=== PATIENT | male | born 1975 | race Caucasian/White ===

== ENCOUNTER 2019-09-18 11:49 | Outpatient (CLI) | payer OTHER ==
[2019-09-18] MEDS ORDERED: BUFFERED LIDOCAINE 10 ML SYRINGE ONE (12:00)
[2019-09-18] MEDS ORDERED: GADOBUTROL 10 MMOL/10 ML VIAL ONE (12:00)
[2019-09-18] MEDS ORDERED: IOTHALAMATE MEGLUMINE 50 ML VIAL ONE (12:00)
[2019-09-18] MEDS ORDERED: IOTHALAMATE MEGLUMINE 50 ML VIAL IVP ONE (13:40)
[2019-09-18] MEDS ORDERED: GADOBUTROL 10 MMOL/10 ML VIAL IVP ONE (13:40)
[2019-09-18] MEDS ORDERED: BUFFERED LIDOCAINE 10 ML SYRINGE IU ONE (13:40)
--- NOTE | 2019-09-18 15:59 | XRAY Report ---
Reason: PAIN IN RT SHOULDER Procedure Date: 09/18/2019 Accession Number: [id number] / [id number] Procedure: FL - Arthrogram Needle Placement CPT Code: Final Report FULL RESULT: EXAM: RIGHT SHOULDER ARTHROGRAPHIC INJECTION WITH FLUOROSCOPIC GUIDANCE EXAM DATE: 09/18/2019 12:53 PM. CLINICAL HISTORY: PAIN IN RT SHOULDER. COMPARISON: None. TECHNIQUE: The risks, benefits, and alternatives of the procedure were discussed with the patient. All questions were answered. Written and verbal consent were obtained. The right glenohumeral joint was marked under fluoroscopy and prepped and draped in a sterile manner. Local anesthesia was performed with 1% lidocaine. A 22-gauge needle was then inserted into the glenohumeral joint. 10 mL of a solution containing 25% 1% lidocaine, 25% iodinated contrast, and a 1:200 dilution of gadolinium contrast in sterile saline was then injected. The needle was removed without immediate complication. Other: None. Fluoroscopy Time: 25 seconds. Number of Images: 3. FINDINGS: Bones and joints: No fracture or subluxation. Injection: Fluoroscopic images demonstrate needle placement and contrast in the glenohumeral joint. No contrast extravasation outside of the glenohumeral joint. IMPRESSION: Successful fluoroscopically guided arthrographic injection of the right shoulder. RADIA
--- NOTE | 2019-09-19 10:38 | MRI Report ---
Reason: PAIN IN RT SHOULDER Procedure Date: 09/18/2019 Accession Number: [id number] / [id number] Procedure: MRI - Arthrogram Shoulder RT CPT Code: Final Report FULL RESULT: EXAM: RIGHT SHOULDER MRI ARTHROGRAM WITH CONTRAST EXAM DATE: 09/18/2019 01:50 PM. CLINICAL HISTORY: Pain in right shoulder. COMPARISON: None. TECHNIQUE: Multiplanar, multisequence T1-weighted and fluid-sensitive sequences of the shoulder after an arthrographic injection of dilute gadolinium, dictated under a separate exam. Other: None. FINDINGS: Rotator cuff: High grade distal articular surface and insertional tear of the supraspinatus measures 3 cm medial to lateral and 2.6 cm anteroposterior. Tear involves some upper fibers of the infraspinatus. The tear involves greater than 50% of the thickness of the distal tendon and insertion. No full-thickness tear identified. No significant rotator cuff muscle atrophy or fatty replacement. Long head biceps tendon: Intact demonstrating normal course, signal and morphology. Labrum: Tiny partial-thickness contrast filling tear at the base of the posterior superior labrum. Tiny tear at the junction of the inferior labrum and inferior glenoid articular cartilage with trace amount of contrast extending into a small anteroinferior subcortical cyst. Bones and articular surfaces: Linear cartilage fissure near the junction of the inferior labrum and lower portion of the glenoid with small anteroinferior subchondral cyst formation. No significant articular cartilage defects. Subcortical cyst formation and subchondral marrow edema at the anterior margin of the greater tuberosity. Acromioclavicular joint: Mild degenerative change. Type II acromion. IMPRESSION: 1. High-grade partial-thickness articular surface and insertional tear of the supraspinatus and upper infraspinatus measuring 2.6 x 3.0 cm. 2. Small tears at the posterior superior and inferior labrum. RADIA
== END 2019-09-18 11:50 | disposition home or self-care (01) ==
LOC: DI 11:49
PROVIDERS: ATTEND Student in an Organized Health Care Education/Training Program
DX: M75.101 Unspecified rotator cuff tear or rupture of right shoulder, not specified as traumatic (principal); S43.491A Other sprain of right shoulder joint, initial encounter
CPT/HCPCS: 23350; 73222; 77002; A9585; Q9961

== ENCOUNTER 2019-10-29 09:34 | Outpatient (CLI) | payer OTHER ==
[2019-10-29 10:54] VITALS: BP 119/68
--- NOTE | 2019-10-29 10:54 | SLEEP CARE CONSULTATION ---
Information from patient questionnaire entered by Melissa Riddle. I have reviewed and concur with the information entered by Melissa Riddle. This document represents the service I personally performed and the decisions made by me, Landon Nance MD, [facility]. History of Present Illness Reason for Visit: New patient Chief Complaint: reports: Insomnia, Unrefreshed sleep, Snoring, Excessive daytime sleepiness, Observed pauses in breathing, Fatigue, Frequent awakenings at night Duration of Symptoms: 2 years Usual bedtime: 9834-0244 Time it takes to fall asleep: 15 minutes Snores at night: Yes Observed to quit breathing while asleep: Yes Sleeps alone due to snoring: No (not yet) Number of times waking at night: 4-10 Reasons for waking at night: reports: Snoring, Pain, Bathroom Toss, Turn, or Twitch while sleeping: Yes Recalls having dreams: No Usually gets out of bed at: 0600 Feels refreshed in the morning: No Morning headache: Yes (sometimes) Sleepy or fatigued during the day: Yes Ever fallen asleep while driving: No Takes day naps: No Dreams during day naps: No Prior sleep studies: No Additional HPI information: I had the pleasure of seeing Mr. Cotto today regarding the possibility of him having a sleep disorder. As you know, he is a 43 year old gentleman who complains of loud snore, observed apneas, unrefreshed sleep, persistent fatigue, and excessive daytime sleepiness for the past 2 years. The patient tells me that he normally goes to bed around 9 - 10 pm, and it takes him approximately 15 minutes to fall asleep. He not been told that he snores loudly and irregularly at night. He has never been observed to stop breathing in his sleep. His occasionally has to sleep in a separate room. He can recall waking up on the average of 4 - 10 times during the night. Most of the time he wakes up because of having to use the bathroom and shoulder pain. He has awakened occasionally because of his own snoring, choking, and having to gasp for air. There is a lot of tossing and turning in his sleep. No somniloquy (sleep talking) or somnambulism (sleep walking). Generally he can recall having dreams. In the morning he usually gets up out of the bed around 6 a.m. not feeling refreshed nor rested. He occasionally has a morning headache lasting about an hour. During the day he complains of feeling sleepy and fatigued. His score on [place] Sleepiness Scale is 14 out of 24. He has never fallen asleep while driving nor has had any accident due to sleepiness. He usually does not take naps during the day. Upon falling asleep during the day he denies having vivid dreams. He has never had sleep paralysis, experienced cataplexy or symptoms of restless leg syndrome. He reports having impaired concentration during the day. Subjective Initial [place] Sleepiness Scale score: 14 Past Medical History Past Medical History: reports: Other (torn right rotator cuff) Social History The patient's occupation is active . Patient is and lives in [place]. Have you smoked in the past 12 months: No Alcohol use: Yes Alcohol amount and frequency: 1/2, 3 days/week Caffeine use: Yes Caffeine amount and frequency: 1/day Family History Family history of sleep disordered breathing: Yes Family Hx Sleep Apnea: Mother: Snoring, Father: Snoring Allergies and Home Medications Known drug allergies: Yes (none) Drug allergies reviewed: Yes Home medication list reviewed: Yes (Advil and Flonase) Review of Systems Weight gain over past 5 years: 8 Weight loss over past 5 years: 8 Cardiovascular: denies: high blood pressure, palpitations, chest pain, irregular heart rate or pulse, leg or foot swelling, have to sleep sitting up, other Respiratory: denies: shortness of breath, wheeze, sputum production, chronic cough, other Gastrointestinal: denies: heartburn, difficulty swallowing, nausea, vomitting, diarrhea, abdominal pain, other Urinary: denies: incontinence, frequency, urgency, impotence, other Neurological: denies: headaches, seizure, head trauma, disorientation, speech dysfunction, gait or balance problems, fainting or unconsciousness, other Psychiatric: denies: Attention Deficit Hyperactivity, anxiety, depression, mood disorder, claustrophobia, other Ear/Nose/Throat: reports: nasal congestion, sinus problems, nose bleeds Endocrine: denies: thyroid disease, history of goiter, sluggishness, too hot or cold, excessive thirst, increased appetite, increased urination, unexplained weakness, other Musculoskeletal: reports: joint pain, neck pain, back pain, joint swelling, mobility problems Immunologic: reports: sneezing, allergies to food or environment Physical Exam Vital signs obtained and entered by: Dr. Nance Blood Pressure: 119/68 Cuff size: regular Heart Rate: 63 O2 Saturation: 98 Height: 5 ft 9 in Weight: 212 lb Body Mass Index: 31.3 BMI Classification: Obesity Class 1 Neck circumference: 16 Mood/affect: Normal HEENT: No craniofacial malformation Nostrils: patent to airflow Turbinates: normal Septum: midline Mouth and throat: narrow oropharynx Soft palate: long Hard palate: normal Uvula: normal Uvula visualization: 50% Mallampati Class II Tongue: normal in size Tonsils: small Chin and jaw: normal size and position Neck: normal w/o lymphadenopathy or thyromegaly Heart: regular rate and rhythm Lungs: clear bilaterally Abdomen: soft, non-tender Extremities: no edema or clubbing Neurologic: intact, no focal deficits Impression and Plan IMPRESSION: 1. Obstructive Sleep Apnea-Hypopnea Syndrome, as suggested by history of loud and irregular snoring, observed cessation of breath while asleep, frequent awakenings during the night, unrefreshed sleep, morning headache, cognitive impairment, and daytime hypersomnolence. Narrow oropharynx and obesity are common predisposing factors for obstructive sleep apnea-hypopnea syndrome. Pathophysiology of sleep-disordered breathing was discussed. I recommend proceeding to polysomnography to confirm the diagnosis and to assess severity. If he has significant sleep disordered breathing, a manual CPAP titration study will also be performed to find the optimal treatment pressure. I informed the patient of what the sleep studies involve and after some discussion, he agreed to proceed. Plan: 1. Schedule polysomnography + manual CPAP titration study 2. Avoid long distance driving or when feeling sleepy. 3. Avoid alcohol, sedative and muscle relaxant around bedtime. 4. Attempt to lose weight. 5. Return in 1 to 2 weeks after the study to discuss results and initiate therapy. I spent 100% of this visit face to face with the patient with greater than 50% of this was spent time counseling the patient and coordination of care.
== END 2019-10-29 09:35 | disposition home or self-care (01) ==
LOC: SC 09:34
PROVIDERS: ATTEND Internal Medicine Pulmonary Disease
DX: R06.83 Snoring (principal); R06.81 Apnea, not elsewhere classified; G47.8 Other sleep disorders; R51 Headache; R41.89 Other symptoms and signs involving cognitive functions and awareness; G47.10 Hypersomnia, unspecified; E66.9 Obesity, unspecified; Z68.31 Body mass index [BMI] 31.0-31.9, adult
CPT/HCPCS: 99203; 99212

== ENCOUNTER 2019-11-12 10:40 | Emergency (ER) | payer OTHER ==
[2019-11-12 11:22] LABS: BASOPHILS % (AUTO) 0.6 %; EOSINOPHILS # (AUTO) 0.2 10^3/uL (0.0-0.7); HGB - HEMOGLOBIN 14.8 g/dL (14.0-18.0); LYMPHOCYTES # (AUTO) 2.1 10^3/uL (1.5-3.5); LYMPHOCYTES % (AUTO) 33.5 %; MEAN CORPUSCULAR HEMOGLOBIN 31.7 pg (27.0-31.0); MEAN CORPUSCULAR HGB CONC 34.5 g/dL (32.0-36.0); MEAN CORPUSCULAR VOLUME 91.9 fL (80.0-94.0); MONOCYTES # (AUTO) 0.5 10^3/uL (0.0-1.0); MONOCYTES % (AUTO) 7.8 %; NEUTROPHILS # (AUTO) 3.5 10^3/uL (1.5-6.6); NEUTROPHILS % (AUTO) 54.8 %; PLT - PLATELET COUNT 301 10^3/uL (130-450); RED BLOOD COUNT 4.67 10^6/uL (4.70-6.10); RED CELL DISTRIBUTION WIDTH 12.6 % (12.0-15.0); WHITE BLOOD COUNT 6.3 x10^3/uL (4.8-10.8)
--- NOTE | 2019-11-12 11:26 | XRAY Report ---
Reason: CHEST PAIN Procedure Date: 11/12/2019 Accession Number: [id number] / [id number] Procedure: XR - Chest 2 View X-Ray CPT Code: 98255 Final Report FULL RESULT: EXAM: CHEST RADIOGRAPHY, 2 VIEWS EXAM DATE: 11/12/2019 11:10 AM. CLINICAL HISTORY: 43-year-old male with chest pain, who has been burping a lot. COMPARISON: None. TECHNIQUE: Upright PA and lateral views. FINDINGS: Lungs/Pleura: No focal opacities evident. No pleural effusion. No pneumothorax. Normal volumes. Mediastinum: Heart size normal, without adenopathy or pulmonary vascular congestion. Other: Trachea is midline. Osseous structures are unremarkable. IMPRESSION: Normal chest for age and body size. No pneumonia, CHF or other demonstrated cause for the patient's symptoms. RADIA
[2019-11-12 11:33] LABS: ALBUMIN 4.7 g/dL (3.2-5.5); ALBUMIN/GLOBULIN RATIO 1.5 (1.0-2.2); BILIRUBIN,TOTAL 1.1 mg/dL (0.2-1.0); CALCIUM 9.5 mg/dL (8.5-10.3); TOTAL PROTEIN 7.8 g/dL (6.7-8.2)
[2019-11-12] MEDS ORDERED: IBUPROFEN 600 MG TABLET PO STA (12:11)
--- NOTE | 2019-11-12 13:08 | ED Physician Documentation ---
PD HPI CHEST PAIN - Stated complaint Stated Complaint: CHEST PX - Chief complaint Chief Complaint: Cardiac - History obtained from History obtained from: Patient - History of Present Illness Timing - onset: How many days ago (2) Timing - duration: Days (2) Quality: Other (Burning) Location: Right chest Radiation: No: Jaw, Neck, Back, Abdominal, Left upper extremity, Right upper extremity, Other Worsened by: Position Associated symptoms: No: Shortness of air, Diaphoresis, Nausea, Vomiting, Feeling faint / dizzy, Palpitations, Cough Recently seen: Not recently seen - Additional information Additional information: Is a 43-year-old man who presents with complaints that he said some burning sensation along the right side of his sternum for the past couple of days. Is been a constant but there is a waxing and waning pain apparently is about a 2 out of 10 right now. Yesterday took some Pepcid for it but it did not seem to help very much and he was at work today and he just did not feel right. Plus he talked to a friend who is at work who said that he had the same kind of pain and ended up having pulmonary embolism. This frightened the patient enough that he decided he should come in and have it looked at. Denies any radiation of the pain but says the left arm is been hurting and points to the bicep region since he did some pull-ups about a day or 2 before this pain started in his chest. He denies any associated symptoms of shortness of breath, cough, dizziness, diaphoresis, nausea. Denies history of DVT. He has had no bruising or trauma to the chest. Denies dysuria or peripheral edema. He has noted that certain positions in bed make the pain worse particular if he is laying on his side but he also attributed that to the fact that he has a rotator cuff injury and is post to have surgery on the right arm. He feels better if he is laying flat on his back. Review of Systems Constitutional: denies: Fever, Sweats Eyes: denies: Decreased vision Nose: denies: Rhinorrhea / runny nose Throat: denies: Sore throat Cardiac: reports: Chest pain / pressure. denies: Palpitations, Pedal edema Respiratory: denies: Dyspnea, Cough GI: denies: Nausea, Vomiting, Diarrhea : denies: Dysuria Skin: denies: Rash Musculoskeletal: reports: Other (Right shoulder pain due to rotator cuff injury). denies: Back pain Neurologic: denies: Near syncope Endocrine: reports: Other (He is not diabetic) PD PAST MEDICAL HISTORY - Present Medications Home Medications: Ambulatory Orders Medication Instructions Recorded Confirmed No Known Home Medications 11/12/19 11/12/19 - Allergies Allergies/Adverse Reactions: Allergies Allergy/AdvReac Type Severity Reaction Status Date / Time amoxicillin [From Augmentin] AdvReac Nausea Verified 11/12/19 10:44 clavulanic acid AdvReac Nausea Verified 11/12/19 10:44 [From Augmentin] - Social History Does the pt smoke?: No Smoking Status: Never smoker PD ED PE NORMAL - Vitals Vital signs reviewed: Yes - General General: Alert and oriented X 3, No acute distress, Well developed/nourished - HEENT HEENT: Atraumatic, PERRL, Moist mucous membranes - Neck Neck: Supple, no meningeal sign, No adenopathy - Cardiac Cardiac: RRR, No murmur, Strong equal pulses, Other (Patient has pain right with palpation at the right costochondral junction.) - Respiratory Respiratory: No respiratory distress, Clear bilaterally - Abdomen Abdomen: Normal bowel sounds - Derm Derm: Normal color, Warm and dry, No rash - Extremities Extremities: No edema - Neuro Neuro: Alert and oriented X 3, 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, No motor deficit, No sensory deficit, Normal speech - Psych Psych: Normal mood, Normal affect Results - Vitals Vitals: Vital Signs - 24 hr 11/12/19 11/12/19 11/12/19 10:41 11:59 13:00 Temperature 37.1 C 36.9 C Heart Rate 65 75 65 Respiratory 18 17 14 Rate Blood Pressure 134/88 H 128/89 H 122/76 O2 Saturation 100 99 99 Oxygen O2 Source Room air - EKG (time done) 1047 Rate: Rate (enter#) (64) Rhythm: NSR Intervals: No: Wide QRS Ischemia: Normal ST segments Compare to prior EKG: Old EKG unavailable - Labs Labs: Laboratory Tests 11/12/19 11/12/19 11/12/19 11:10 11:10 11:10 WBC 6.3 RBC 4.67 L Hgb 14.8 Hct 42.9 MCV 91.9 MCH 31.7 H MCHC 34.5 RDW 12.6 Plt Count 301 MPV 10.0 Neut # (Auto) 3.5 Lymph # (Auto) 2.1 [place] # (Auto) 0.5 Eos # (Auto) 0.2 Baso # (Auto) 0.0 Absolute Nucleated RBC 0.00 Nucleated RBC % 0.0 Sodium 139 Potassium 4.3 Chloride 103 Carbon Dioxide 28 Anion Gap 8.0 BUN 17 Creatinine 1.0 Estimated GFR (MDRD) 82 L Glucose 114 H Calcium 9.5 Total Bilirubin 1.1 H AST 26 ALT 32 Alkaline Phosphatase 34 L Troponin I High Sens < 2.3 L Total Protein 7.8 Albumin 4.7 Globulin 3.1 Albumin/Globulin Ratio 1.5 Lipase 33 PD MEDICAL DECISION MAKING - ED course Complexity details: reviewed results, re-evaluated patient, d/w patient ED course: Chest x-ray is negative. His EKG has no acute changes. Labs including a troponin were normal. Patient has reproducible pain at the costochondral junction on the right side and has a rotator cuff injury to the right shoulder that he supposed to have surgery on. He was recently doing pull-ups and I think that may have been what precipitated this pain. He was given a dose of ibuprofen here but at the time of reevaluation it had not made any dip Departure - Departure Disposition: 01 Home, Self Care Clinical Impression: Costochondritis, acute Condition: Good Instructions: ED Chest Pain Costochondritis Follow-Up: REDDY Lamb [Provider Group] Comments: Take ibuprofen up to 3 to 4 tablets every 8 hours with food as needed. You can ice this area. Avoid anything that strains your chest wall like push push-ups and pull-ups. [place] if the pain persist and is not improving. Discharge Date/Time: 11/12/19 13:11
[2019-11-12 13:11] VITALS: BP 122/76
== END 2019-11-12 13:11 | disposition home or self-care (01) ==
LOC: ED 10:40
DX: M94.0 Chondrocostal junction syndrome [Tietze] (principal); G47.33 Obstructive sleep apnea (adult) (pediatric); E66.9 Obesity, unspecified; Z68.31 Body mass index [BMI] 31.0-31.9, adult
CPT/HCPCS: 36415; 71046; 80053; 83690; 84484; 85025; 93005; 95810; 99284; A9270

== ENCOUNTER 2019-11-12 19:39 | Outpatient (CLI) | payer OTHER | END 2019-11-12 19:40 | disposition home or self-care (01) | LOC: SC 19:39 | PROVIDERS: ATTEND Internal Medicine Pulmonary Disease | DX: G47.33 Obstructive sleep apnea (adult) (pediatric) (principal); E66.9 Obesity, unspecified; Z68.31 Body mass index [BMI] 31.0-31.9, adult | CPT/HCPCS: 95810 ==

== ENCOUNTER 2019-11-13 14:00 | Outpatient (CLI) | payer OTHER ==
--- NOTE | 2019-11-13 14:30 | SLEEP CARE CONSULTATION ---
Information from patient questionnaire entered by Melissa Riddle. I have reviewed and concur with the information entered by Melissa Riddle. This document represents the service I personally performed and the decisions made by me, Landon Nance MD, [facility]. History of Present Illness Initial [place] Sleepiness Scale score: 14 Current [place] Sleepiness Scale score: 10 Additional HPI information: HPI: Mr. Cotto returned for follow up of the sleep study he had last night. The polysomnography showed that the patient had normal sleep efficiency. The sleep architecture was normal as well. Respiratory monitoring showed mild obstructive sleep apnea-hypopnea (AHI = 6.0) associated with oxyhemoglobin desaturation and minimal hypoxia (chi oxygen saturation of 89%) but not sleep fragmentation. The respiratory events occurred almost exclusively during supine sleep (supine AHI = 8.1; non-supine = 0.87). Snore was loud in intensity. There was no significant periodic leg movement of sleep. Cardiac rhythm was normal sinus rhythm without significant arrhythmia. No abnormal behavior (parasomnia) observed during the night. The patient was informed of these findings. I explained to him the pathophysiology behind obstructive sleep apnea. We then spent quite a bit of time discussing different treatment options. For mild obstructive sleep apnea, surgery and oral appliance are alternatives to nasal CPAP therapy but in moder ate or severe cases, nasal CPAP is the most effective and reliable treatment. Weight loss in an obese individual is strongly recommended. After some discussion, he opted to go with the nasal CPAP therapy. He says that he has right shoulder pain and cannot sleep on that side. He also has TMJ disorder that could interfere with the oral appliance therapy. Allergies and Home Medications Drug allergies reviewed: Yes Home medication list reviewed: Yes (Advil & Flonase) Review of Systems Review of systems same as previous: Yes Physical Exam Height: 5 ft 9 in Weight: 212 lb Body Mass Index: 31.3 BMI Classification: Obesity Class 1 Impression and Plan IMPRESSION: 1. Obstructive Sleep Apnea-Hypopnea Syndrome, mild, and positional. Possibly, this is the cause of the patients symptoms of unrefreshed sleep, and excessive daytime sleepiness. As mentioned above, the patient will be brought back for a manual CPAP/BiPAP titration study. PLAN: 1. Schedule a manual CPAP/BiPAP titration study. 2. Attempt to lose weight and avoid alcohol consumption near bedtime. 3. Return for follow up after the sleep study. I spent 100% of this visit face to face with the patient with greater than 50% of this was spent time counseling the patient and coordination of care.
== END 2019-11-13 14:01 | disposition home or self-care (01) ==
LOC: SC 14:00
PROVIDERS: ATTEND Internal Medicine Pulmonary Disease
DX: G47.33 Obstructive sleep apnea (adult) (pediatric) (principal); E66.9 Obesity, unspecified; Z68.31 Body mass index [BMI] 31.0-31.9, adult
CPT/HCPCS: 99212; 99213

== ENCOUNTER 2019-11-27 20:36 | Outpatient (CLI) | payer OTHER | END 2019-11-27 20:37 | disposition home or self-care (01) | LOC: SC 20:36 | PROVIDERS: ATTEND Internal Medicine Pulmonary Disease | DX: G47.33 Obstructive sleep apnea (adult) (pediatric) (principal) | CPT/HCPCS: 95811 ==

== ENCOUNTER 2019-12-04 10:22 | Outpatient (CLI) | payer OTHER ==
--- NOTE | 2019-12-04 12:30 | SLEEP CARE CONSULTATION ---
Information from patient questionnaire entered by Melissa Riddle. I have reviewed and concur with the information entered by Melissa Riddle. This document represents the service I personally performed and the decisions made by me, Edyta Bell, RN, MSN, [facility]. History of Present Illness Initial [place] Sleepiness Scale score: 14 Current [place] Sleepiness Scale score: 16 Additional HPI information: JILL FABIAN returns for follow up and results of the recently performed manual titration polysomnography. I explained the pathophysiology behind obstructive sleep apnea and reviewed his polysomnagraphy results as requested as had more questions. After some discussion, the patient opted to go with the nasal CPAP therapy. Nasal autoCPAP set at 6-8 cmH20 will be ordered with rationale explained. I explained how CPAP machine works with sample devices [employer] Dreamstation and [employer]etbox [id number] and what to expect when using the machine. Using CPAP every night in order to get used to it was emphasized. Patient advised to put CPAP mask on before getting into bed so as not to fall asleep without CPAP. To assist acclimation to CPAP use, it could also be used for a short time during day while reading or watching TV. The patient was instructed to call the CPAP supplier to discuss any mechanical problem that may occur. If the mask given is uncomfortable or is difficult to keep on through the night even with adjustment, contact the CPAP supplier as many will replace with another mask style if notified before 30 days. If snoring or perceives is not getting enough air or too much air from the machine, notify this office. [facility] patient education PAP tips reviewed and given to patient. Patient prefers the Dreamstation. Patient counseled not drink alcohol less than 4 hours before bedtime as it can increase snoring and apnea. Patient was cautioned about risks of drowsy driving until sleepiness symptoms resolve. Patient denies drowsy driving. Sleep Study - Results Polysomnography/Home Sleep Study results: The quality of the study is good. CPAP was initiated at 4 cmH2O and titrated up to CPAP at 8 cmH2O. CPAP at 6 cmH2O appeared to be optimal (AHI of 1.2 per hour on the pressure). There was supine sleep on the pressure. Oxygen saturation was minimally low. Lower CPAP settings allowed frequent residual respiratory events. The patient appeared to have tolerated positive airway pressure therapy very well. The patients sleep efficiency was normal. The sleep architecture was normal. There was no significant periodic leg movement of sleep. Cardiac rhythm was normal sinus rhythm without significant arrhythmia. No abnormal behavior (parasomnia) observed during the night. Allergies and Home Medications Known drug allergies: Yes (augmentin ) Home medication list reviewed: Yes Allergy and home medication list: Advil prn Allegera prn Review of Systems Review of systems same as previous: Yes Physical Exam Blood Pressure: 134/76 Cuff size: wrist Heart Rate: 68 O2 Saturation: 98 Height: 5 ft 9 in Weight: 217 lb (with fatigues and boots ) Body Mass Index: 32.0 BMI Classification: Obese Impression and Plan 1. Obstructive Sleep Apnea-Hypopnea Syndrome, mild, adequately controlled with 6cmH20. Auto Pressure also recommended. Since patient was comfortable with waking pressure and felt not enough pressure initially, I will order autoCPAP at 6-8cmH20. Obviously this is the cause of the patients symptoms of unrefreshed sleep, and excessive daytime sleepiness. Positive pressure therapy could benefit . Because the apnea is more severe supine, I instructed to avoid sleeping supine using pillow positioning until able to start CPAP use. * Nasal auto CPAP therapy, pressure at 6-8 cm H2O. * Respironics CPAP preferred by patient. * Attempt to lose weight. * Avoid alcohol consumption near bedtime. * Avoid supine sleep until using CPAP. * The patient is again cautioned about driving until sleepiness completely resolves. * Return one month after CPAP obtained. I will assess response to therapy and compliance at that time. Time Spent with Patient (minutes): 30 I spent 100% of this visit face to face with the patient with greater than 50% of this was spent time counseling the patient and coordination of care.
[2019-12-04 12:31] VITALS: BP 134/76
== END 2019-12-04 10:23 | disposition home or self-care (01) ==
LOC: SC 10:22
PROVIDERS: ATTEND Nurse Practitioner Family
DX: G47.33 Obstructive sleep apnea (adult) (pediatric) (principal); E66.9 Obesity, unspecified; Z68.32 Body mass index [BMI] 32.0-32.9, adult
CPT/HCPCS: 99212; 99214

== ENCOUNTER 2020-01-22 16:58 | Outpatient (CLI) | payer OTHER ==
--- NOTE | 2020-01-22 10:21 | SLEEP CARE CONSULTATION ---
Information from patient questionnaire entered by Melissa Riddle. I have reviewed and concur with the information entered by Melissa Riddle. This document represents the service I personally performed and the decisions made by me, Landon Nance MD, [facility]. History of Present Illness Service Date and Time: 01/22/2020 1020 Previous diagnosis: Mild, Obstructive Sleep Apnea-Hypopnea Syndrome AHI: 6.0 Reason for follow up: first compliance Equipment type: CPAP Equipment obtained from: [employer] additional information: To minimize the risk of COVID-19 exposure, the patient has requested and consented to this video telemedicine visit. The patient also agrees to having his insurance billed. HPI: Mr. Cotto was called today to follow up on the nasal CPAP therapy. He was diagnosed to have mild obstructive sleep apnea-hypopnea syndrome. The patient wears a [employer]ics DreamWisp nasal mask. [employer] is his durable medical supplier. He reports using the device nightly and all through the night. The compliance report shows usage in 30 nights out of the past 30 nights, averaging 8.3 hours a night. The > 4 hour compliance rate for the past 30 days is 100%. He complained of no particular problem with the device such as soreness on the face, dry nose, epistaxis, nasal congestion or headache. He thinks that the pressure 6 8.5 cmH2O is comfortable. He does not use the heated humidifier. On the CPAP therapy he notices improvement in his sleep quality, and that he wakes up feeling fresher in the morning and more awake/alert during the day. His notices no snore at all. The average residual AHI is 4.2; and average time in large leak per day is 1 minute. The 90th percentile pressure is 7.4 cmH 2O. CPAP Compliance Data - Data Reviewed with Patient Average duration of nightly device use: 8H 5M Compliance rate %: 96.7 Current pressure setting (cmH2O): 6-8.5 Humidity settin Heated hose settin Average residual AHI: 4.2 Average large leak: 1m 16s Subjective Initial Declo Sleepiness Scale score: 14 Allergies and Home Medications Drug allergies reviewed: Yes Home medication list reviewed: Yes Review of Systems Review of systems same as previous: Yes Physical Exam Height: 5 ft 9 in Impression and Plan IMPRESSION: 1. Obstructive Sleep Apnea-Hypopnea Syndrome, mild (AHI was 6.0) with the patient doing well on nasal CPAP therapy. He has excellent compliance and significant clinical improvement. The current pressure appears effective and comfortable. His mask fits well. Overall, he is very satisfied with treatment and plans to continue with it long-term. To make the treatment slightly more effective, I will raise the autoCPAP setting. PLAN: 1. Prescription for autoCPAP to be set at 6 - 10 cmH2O. 2. Try to lose weight 3. Follow up with a sleep physician at his new location after moving away from here in March. Visit Type: Telehealth Video Video Type: [employer] Patient Location: Home Location of Provider: Home Patient agrees and consents to this telehealth visit type: Yes Time Spent with Patient (minutes): 15 Provider Statement: I spent 100% of the Telehealth Video Call with the patient with greater than 50% spent counseling the patient and coordination of care.
== END 2020-01-22 16:59 | disposition home or self-care (01) ==
LOC: SC 16:58
PROVIDERS: ATTEND Internal Medicine Pulmonary Disease
DX: G47.33 Obstructive sleep apnea (adult) (pediatric) (principal)